=== PATIENT | male | born 1970 | race Caucasian/White ===

== ENCOUNTER 2017-12-22 19:22 | Observation (INO) ==
--- NOTE | 2017-12-22 19:56 | Emergency Department Note ---
Disposition Clinical Impression: Lumbar radiculopathy Disposition: Admitted As Inpatient Condition: Good Referrals: NONE,PCP [Primary Care Provider] - Forms: ED Satisfaction Letter Time of Disposition: 22:39 Back Pain HPI - General Chief Complaint: ED Back Pain/Injury Stated Complaint: lumbar compression Time Seen by Provider: 12/22/17 19:43 Source: patient, EMS Mode of arrival: EMS Limitations: no limitations Nursing Notes Reviewed: Yes Vital Signs Reviewed: Yes - History of Present Illness HPI Narrative: 47-year-old male presents to the ER with a chief complaint of left leg pain, numbness. Patient states he started having pain roughly 6 months ago. Denies any trauma. States that he has been seeing his primary care provider getting anti-inflammatories. No imaging performed. States that it has been debilitating for the last 6 months however this morning whenever he bent over to try to put on his sock that the symptoms intensified. No prior history of surgeries on his back. No fevers, diabetes, history of IV drug use, anticoagulation. He reports numbness that goes down his left leg. He was seen in an outside facility where he had imaging of his hip as well as his lumbar spine with MRI. MRI report at that time demonstrated retropulsion of L5-S1 and the patient was transferred here for further evaluation. It appears that orthopedics was consulted by the staff there. Pt Subjective Complaint: other (LLE pain, numbness) Onset (ago): month(s) Duration: gradually worsening Similar Symptoms Previously: Yes Pain Severity: severe Radiation: left leg Improves with: none Worsens with: movement Context: bending - Related Data Home Medications Medication Instructions Recorded Confirmed No Known Home Drugs 12/22/17 12/22/17 Allergies Allergy/AdvReac Type Severity Reaction Status Date / Time No Known Allergies Allergy Verified 12/22/17 21:59 All systems ED: reviewed and negative except as stated. Constitutional: Denies: fever Genitourinary: Denies: urgency, dysuria Musculoskeletal: Denies: back pain Neurological: Reports: numbness, paresthesias. Denies: weakness Past Medical History - Past Medical History Attestation: Yes The following information was validated with the patient. Source: patient Medical history: Reports: no medical history Psychiatric history: Reports: no psych history - Social History Smoking Status: Current every day smoker Alcohol use: Reports: occasionally Drug use: Reports: none Physical Exam - General Limitations: no limitations General appearance: alert, in no apparent distress - Head Head exam: atraumatic, normocephalic - Eye Eye exam: Present: normal appearance - ENT ENT exam: normal exam - Neck Neck exam: Present: normal inspection - Chest Chest inspection: Present: normal inspection, symmetric chest wall rise - Respiratory Respiratory exam: Present: normal lung sounds bilaterally - Cardiovascular Cardiovascular exam: Present: regular rate, normal rhythm, normal heart sounds - Abdominal Exam Abdominal exam: Present: soft, Non-Tender. Absent: tenderness, distention, rigidity - Extremities Exam Extremities exam: Present: normal inspection, full ROM - Expanded Upper Extremity Exam Shoulder exam: Present: normal inspection, full ROM Arm exam: Present: normal inspection, full ROM Elbow exam: Present: normal inspection, full ROM Forearm/Wrist exam: Present: normal inspection, full ROM Hand exam: Present: normal inspection, full ROM Vascular exam: Normal: radial pulse - Expanded Lower Extremity Exam Hip/Pelvis exam: Present: normal inspection, full ROM Upper leg exam: Present: normal inspection, full ROM Knee exam: Present: normal inspection, full ROM Lower leg exam: Present: normal inspection, full ROM Ankle exam: Present: normal inspection, full ROM Foot/toe exam: Present: normal inspection, full ROM Neurovascular/Tendon exam: Present: sensory deficit. Absent: motor deficit - Back Exam Back exam: Present: normal inspection. Absent: tenderness, CVA tenderness (R), CVA tenderness (L), vertebral tenderness - Neurological Exam Neurological exam: Present: alert, other (GCS 15. The patient has numbness to the left leg as well as decreased range of motion secondary to pain.) - Skin Skin exam: Present: warm, dry Course Course Narrative: Patient seen and examined. Vital signs reviewed. Imaging reviewed from the prior facility. Evidence of L5-S1 disc extrusion with mass effect and compression of the descending S1 nerve root. Plan to get labs, bladder scan and discuss with spine. - Reevaluation(s) Reevaluation #1: Spine has been paged. Time: 21:00 - Consultations Consultation #1: I spoke with Dr. Freire who was continuous mining machine lode miner for spine. Discussed the patient's history exam as well as imaging at the outside facility. Discussed the patient' s bladder scan which showed 270 mL. The patient has preserved motor function with power of at least 4/5 somewhat limited due to pain. His symptoms are purely sensory at this time. Dr. Freire agrees with admission with consultation to pain management and that he will also discuss with Dr Beckett tomorrow. States there is no emergent indication for operative intervention if he is not having bowel or bladder issues or loss of motor function at this time. Time: 21:44 Vital Signs Temperature 98.5 F 12/22/17 19:43 Pulse Rate 128 12/22/17 19:43 Respiratory Rate 20 12/22/17 19:43 Blood Pressure 173/100 12/22/17 19:43 O2 Sat by Pulse Oximetry 96 12/22/17 19:43 Temperature 98.5 F 12/22/17 19:43 Pulse Rate 116 12/22/17 21:28 Respiratory Rate 18 12/22/17 21:28 Blood Pressure 137/109 12/22/17 21:28 O2 Sat by Pulse Oximetry 94 12/22/17 21:28 Oxygen Delivery Oxygen Delivery Room Air Back Pain/Injury - MDM Narrative Medical decision making narrative: 47-year-old male with lumbar radiculopathy to the left leg. MRI demonstrating significant compression of the S1 nerve root. He is neurologically intact with the exception of sensation deficit in the left leg. His bladder scan here did not demonstrate retention. Our spine surgeon was consulted per documentation from the outlying facility. This case was discussed with the on-call spine provider who is consulted and was also going to pass this case along to the spine surgeon tomorrow. They do not recommend for any emergent intervention as the patient has no bowel or bladder symptoms or motor deficit. Patient's pain was attempted to be treated in the emergency department with narcotics. The patient is admitted to the hospitalist service with consultation to pain management. - Medical Records Medical records reviewed: Yes I reviewed the patient's medical records. - Lab Data Lab results reviewed: Yes I reviewed the patient's lab results. Result diagrams: 12/22/17 19:53 12/22/17 19:53 Lab Results 12/22/17 12/22/17 12/22/17 Range/Units 19:53 19:53 19:53 WBC 15.9 H (4.3-11.1) K/mcL RBC 5.20 (4.19-5.50) M/mcL Hgb 16.7 (12.9-16.9) g/dL Hct 47.3 (37.5-50.1) % MCV 91.0 (83.0-100.0) fL MCH 32.1 (28.0-33.3) pg MCHC 35.3 (31.6-35.5) g/dL RDW 12.3 (11.5-14.5) % Plt Count 249 (140-400) K/mcL MPV 9.5 (9.4-12.4) fL Immature Gran % 3.1 (0-4) % Seg Neutrophils % 90.7 % Lymphocytes % 4.8 % Monocytes % 0.8 % Eosinophils % 0.0 % Basophils % 0.6 % Neutrophils # 14.4 H (1.6-8.9) K/mcL Lymphocytes # 0.8 (0.6-4.6) K/mcL Monocytes # 0.1 (0.0-1.3) K/mcL Eosinophils # 0.0 (0.0-0.6) K/mcL Basophils # 0.1 (0.0-0.2) K/mcL PT 11.8 (9.4-12.1) Seconds INR 1.0 Sodium 136 (136-145) mEq/L Potassium 4.4 (3.5-5.1) mEq/L Chloride 102 (98-107) mEq/L Carbon Dioxide 24 (23-29) mEq/L BUN 18 (6-20) mg/dL Creatinine 1.06 (0.70-1.30) mg/dL Est GFR ( Amer) > 60 (> 60) Est GFR (Non-Af Amer) > 60 (> 60) BUN/Creatinine Ratio 17 (6-26) Glucose 164 H (70-105) mg/dL Calculated Osmolality 288 (280-300) Calcium 10.7 H (8.6-10.3) mg/dL Urine Color (Yellow) Urine Clarity (Clear) Urine pH (5.0-8.0) pH Units Ur Specific [place] (1.010-1.025) Urine Protein (Neg-Trace) mg/dL Urine Glucose (UA) (Normal) mg/dL Urine Ketones (Negative) mg/dL Urine Blood (Negative) Urine Nitrite (Negative) Urine Bilirubin (Negative) Urine Urobilinogen (Normal) mg/dL Ur Leukocyte Esterase (Negative) Urine Microscopic WBC (0-3) per hpf Ur Squamous Epith Cells (None-Few) per lpf Urine Bacteria (None-Few) per hpf Hyaline Casts (None-Few) per lpf Urine Yeast Ur Culture Indicated? (NO) 12/22/17 Range/Units 20:10 WBC (4.3-11.1) K/mcL RBC (4.19-5.50) M/mcL Hgb (12.9-16.9) g/dL Hct (37.5-50.1) % MCV (83.0-100.0) fL MCH (28.0-33.3) pg MCHC (31.6-35.5) g/dL RDW (11.5-14.5) % Plt Count (140-400) K/mcL MPV (9.4-12.4) fL Immature Gran % (0-4) % Seg Neutrophils % % Lymphocytes % % Monocytes % % Eosinophils % % Basophils % % Neutrophils # (1.6-8.9) K/mcL Lymphocytes # (0.6-4.6) K/mcL Monocytes # (0.0-1.3) K/mcL Eosinophils # (0.0-0.6) K/mcL Basophils # (0.0-0.2) K/mcL PT (9.4-12.1) Seconds INR Sodium (136-145) mEq/L Potassium (3.5-5.1) mEq/L Chloride (98-107) mEq/L Carbon Dioxide (23-29) mEq/L BUN (6-20) mg/dL Creatinine (0.70-1.30) mg/dL Est GFR ( Amer) (> 60) Est GFR (Non-Af Amer) (> 60) BUN/Creatinine Ratio (6-26) Glucose (70-105) mg/dL Calculated Osmolality (280-300) Calcium (8.6-10.3) mg/dL Urine Color Dark Yellow (Yellow) Urine Clarity Clear (Clear) Urine pH 5.5 (5.0-8.0) pH Units Ur Specific [place] 1.026 H (1.010-1.025) Urine Protein Trace (Neg-Trace) mg/dL Urine Glucose (UA) Normal (Normal) mg/dL Urine Ketones Trace H (Negative) mg/dL Urine Blood Negative (Negative) Urine Nitrite Negative (Negative) Urine Bilirubin Small H (Negative) Urine Urobilinogen Normal (Normal) mg/dL Ur Leukocyte Esterase Negative (Negative) Urine Microscopic WBC 0-3 (0-3) per hpf Ur Squamous Epith Cells Moderate H (None-Few) per lpf Urine Bacteria None Seen (None-Few) per hpf Hyaline Casts None Seen (None-Few) per lpf Urine Yeast Test Not Performed Ur Culture Indicated? NO (NO) Heidy - Heidy Situation: Demographics, MOA Background: Presenting Complaint, Relevant PMH, Meds, & Allergies Assessment: Course and respsone to treatment, Exam Concerns, Patient/Family Expectation, Pertinant Lab Results Recommendation: Barrier(s) to disposition, Recommendation based on pending studies, treatments, or consults Heidy Report Given to: Dr. Jose Moody Repor Time: 22:37
[2017-12-22 20:06] LABS: Basophils # 0.1 K/mcL (0.0-0.2); Basophils % 0.6 %; Hematocrit 47.3 % (37.5-50.1); Hemoglobin 16.7 g/dL (12.9-16.9); Immature Granulocytes % 3.1 % (0-4); Lymphocytes # 0.8 K/mcL (0.6-4.6); Lymphocytes % 4.8 %; Mean Corpuscular HGB Conc 35.3 g/dL (31.6-35.5); Mean Corpuscular Hemoglobin 32.1 pg (28.0-33.3); Mean Platelet Volume 9.5 fL (9.4-12.4); Monocytes # 0.1 K/mcL (0.0-1.3); Monocytes % 0.8 %; Neutrophils # 14.4 K/mcL (1.6-8.9); Platelet Count 249 K/mcL (140-400); Red Cell Distribution Width 12.3 % (11.5-14.5); Segmented Neutrophils % 90.7 %
[2017-12-22 20:11] LABS: Prothrombin Time 11.8 Seconds (9.4-12.1)
[2017-12-22] MEDS ORDERED: *HR* FentaNYL (PF) 100 MCG/2 ML VIAL IVP ONE (20:16)
[2017-12-22 20:22] LABS: Bilirubin,Urine Small (Negative); Blood,Urine Negative (Negative); Clarity,Urine Clear (Clear); Color,Urine Dark Yellow (Yellow); Glucose,Urine (UA) Normal (Normal); Ketones,Urine Trace mg/dL (Negative); Leukocyte Esterase,Urine Negative (Negative); Nitrite,Urine Negative (Negative); PH,Urine 5.5 pH Units (5.0-8.0); Protein,Urine Trace mg/dL (Neg-Trace); Specific Gravity,Urine 1.026 (1.010-1.025); Urobilinogen,Urine Normal (Normal)
[2017-12-22 20:24] LABS: Bacteria,Urine None Seen per hpf (None-Few); Hyaline Casts,Urine None Seen per lpf (None-Few); Squamous Epithelial Cell,Urine Moderate per lpf (None-Few); WBC,Urine 0-3 per hpf (0-3)
[2017-12-22 20:25] LABS: BUN/Creatinine Ratio 17 (6-26); Blood Urea Nitrogen 18 mg/dL (6-20); Calcium 10.7 mg/dL (8.6-10.3); Carbon Dioxide 24 mEq/L (23-29); Chloride 102 mEq/L (98-107); Glucose 164 mg/dL (70-105); Osmolality,Calculated 288 (280-300); Potassium 4.4 mEq/L (3.5-5.1); Sodium 136 mEq/L (136-145); eGFR For Non-African Americans > 60 (> 60)
--- NOTE | 2017-12-22 21:09 | Emergency Department Note ---
Disposition Clinical Impression: Lumbar radiculopathy Disposition: Admitted As Inpatient Condition: Good Time of Disposition: 22:39 General Adult HPI - General Chief complaint: ED Back Pain/Injury Stated complaint: lumbar compression Time Seen by Provider: 12/22/17 19:43 Source: patient, EMS Mode of arrival: EMS Limitations: no limitations Nursing Notes Reviewed: Yes Vital Signs Reviewed: Yes - History of Present Illness Pain Scale: 10 - Related Data Home Medications Medication Instructions Recorded Confirmed No Known Home Drugs 12/22/17 12/22/17 Allergies Allergy/AdvReac Type Severity Reaction Status Date / Time No Known Allergies Allergy Verified 12/22/17 21:59 Constitutional: Denies: fever Genitourinary: Denies: urgency, dysuria Musculoskeletal: Denies: back pain Neurological: Reports: numbness, paresthesias. Denies: weakness Past Medical History - Past Medical History Medical history: Reports: no medical history Psychiatric history: Reports: no psych history - Social History Smoking Status: Current every day smoker Alcohol use: Reports: occasionally Drug use: Reports: none Physical Exam - General Limitations: no limitations General appearance: alert, in no apparent distress Course Vital Signs Temperature 98.5 F 12/22/17 19:43 Pulse Rate 128 12/22/17 19:43 Respiratory Rate 20 12/22/17 19:43 Blood Pressure 173/100 12/22/17 19:43 O2 Sat by Pulse Oximetry 96 12/22/17 19:43 Temperature 98.5 F 12/22/17 19:43 Pulse Rate 116 12/22/17 21:28 Respiratory Rate 18 12/22/17 21:28 Blood Pressure 137/109 12/22/17 21:28 O2 Sat by Pulse Oximetry 94 12/22/17 21:28 Oxygen Delivery Oxygen Delivery Room Air Medical Decision Making - Lab Data Lab results reviewed: Yes I reviewed the patient's lab results. Result diagrams: 12/22/17 19:53 12/22/17 19:53 Lab Results 12/22/17 12/22/17 12/22/17 Range/Units 19:53 19:53 19:53 WBC 15.9 H (4.3-11.1) K/mcL RBC 5.20 (4.19-5.50) M/mcL Hgb 16.7 (12.9-16.9) g/dL Hct 47.3 (37.5-50.1) % MCV 91.0 (83.0-100.0) fL MCH 32.1 (28.0-33.3) pg MCHC 35.3 (31.6-35.5) g/dL RDW 12.3 (11.5-14.5) % Plt Count 249 (140-400) K/mcL MPV 9.5 (9.4-12.4) fL Immature Gran % 3.1 (0-4) % Seg Neutrophils % 90.7 % Lymphocytes % 4.8 % Monocytes % 0.8 % Eosinophils % 0.0 % Basophils % 0.6 % Neutrophils # 14.4 H (1.6-8.9) K/mcL Lymphocytes # 0.8 (0.6-4.6) K/mcL Monocytes # 0.1 (0.0-1.3) K/mcL Eosinophils # 0.0 (0.0-0.6) K/mcL Basophils # 0.1 (0.0-0.2) K/mcL PT 11.8 (9.4-12.1) Seconds INR 1.0 Sodium 136 (136-145) mEq/L Potassium 4.4 (3.5-5.1) mEq/L Chloride 102 (98-107) mEq/L Carbon Dioxide 24 (23-29) mEq/L BUN 18 (6-20) mg/dL Creatinine 1.06 (0.70-1.30) mg/dL Est GFR ( Amer) > 60 (> 60) Est GFR (Non-Af Amer) > 60 (> 60) BUN/Creatinine Ratio 17 (6-26) Glucose 164 H (70-105) mg/dL Calculated Osmolality 288 (280-300) Calcium 10.7 H (8.6-10.3) mg/dL Urine Color (Yellow) Urine Clarity (Clear) Urine pH (5.0-8.0) pH Units Ur Specific [place] (1.010-1.025) Urine Protein (Neg-Trace) mg/dL Urine Glucose (UA) (Normal) mg/dL Urine Ketones (Negative) mg/dL Urine Blood (Negative) Urine Nitrite (Negative) Urine Bilirubin (Negative) Urine Urobilinogen (Normal) mg/dL Ur Leukocyte Esterase (Negative) Urine Microscopic WBC (0-3) per hpf Ur Squamous Epith Cells (None-Few) per lpf Urine Bacteria (None-Few) per hpf Hyaline Casts (None-Few) per lpf Urine Yeast Ur Culture Indicated? (NO) 12/22/17 Range/Units 20:10 WBC (4.3-11.1) K/mcL RBC (4.19-5.50) M/mcL Hgb (12.9-16.9) g/dL Hct (37.5-50.1) % MCV (83.0-100.0) fL MCH (28.0-33.3) pg MCHC (31.6-35.5) g/dL RDW (11.5-14.5) % Plt Count (140-400) K/mcL MPV (9.4-12.4) fL Immature Gran % (0-4) % Seg Neutrophils % % Lymphocytes % % Monocytes % % Eosinophils % % Basophils % % Neutrophils # (1.6-8.9) K/mcL Lymphocytes # (0.6-4.6) K/mcL Monocytes # (0.0-1.3) K/mcL Eosinophils # (0.0-0.6) K/mcL Basophils # (0.0-0.2) K/mcL PT (9.4-12.1) Seconds INR Sodium (136-145) mEq/L Potassium (3.5-5.1) mEq/L Chloride (98-107) mEq/L Carbon Dioxide (23-29) mEq/L BUN (6-20) mg/dL Creatinine (0.70-1.30) mg/dL Est GFR ( Amer) (> 60) Est GFR (Non-Af Amer) (> 60) BUN/Creatinine Ratio (6-26) Glucose (70-105) mg/dL Calculated Osmolality (280-300) Calcium (8.6-10.3) mg/dL Urine Color Dark Yellow (Yellow) Urine Clarity Clear (Clear) Urine pH 5.5 (5.0-8.0) pH Units Ur Specific [place] 1.026 H (1.010-1.025) Urine Protein Trace (Neg-Trace) mg/dL Urine Glucose (UA) Normal (Normal) mg/dL Urine Ketones Trace H (Negative) mg/dL Urine Blood Negative (Negative) Urine Nitrite Negative (Negative) Urine Bilirubin Small H (Negative) Urine Urobilinogen Normal (Normal) mg/dL Ur Leukocyte Esterase Negative (Negative) Urine Microscopic WBC 0-3 (0-3) per hpf Ur Squamous Epith Cells Moderate H (None-Few) per lpf Urine Bacteria None Seen (None-Few) per hpf Hyaline Casts None Seen (None-Few) per lpf Urine Yeast Test Not Performed Ur Culture Indicated? NO (NO) - Radiology Data Radiology results reviewed: Yes I reviewed the patient's radiology results. Attestation Statement - Attestation Attestation: I, Mitchell Waggoner MD, personally evaluated this patient and discussed their management with the resident physician. I reviewed the resident's note and agree with the documented findings, medical decision making, and plan of care. 47-year-old male who is transferred here from another hospital for back pain. Patient had a complete workup at the other facility including an MRI of the spine. Patient was accepted for transfer here by the spine surgeon Dr. Beckett , but was accepted only to come to the emergency department. I am unclear why as the patient has already had a complete workup including MRI. He states he has had left lower back pain radiating down the left leg with intermittent numbness and tingling in the left leg for the past 6 months. Symptoms became acutely worse this morning when he bent over to put on his socks. He states today the pain is been intolerable. He states he has not urinated all day but denies any urge to urinate. No dribbling or incontinence. No fever or abdominal pain. On examination patient is a well-developed well-nourished male in moderate discomfort. He is standing holding on the side of the stretcher as he is unable to sit. There is no cyanosis or diaphoresis. Breath sounds are clear and equal bilaterally. Heart regular rate and rhythm. Abdomen soft and nontender with normal bowel sounds. Decreased sensation over the posterior and lateral aspect of the left leg as well as the posterior calf. MRI from the outside facility showed an L5-S1 large left lateral recess disc extrusion with caudal disc migration measures causing severe left lateral recess stenosis with mass effect/compression of the left descending S1 nerve root. The disc extrusion measures 8 mm AP and 8 mm of caudal migration. Consultation with orthopedic documentation specialist as recommended. Labs reviewed. Dr. Darden consulted orthopedic spine electronic device monitor, Dr. Freire, and he recommended admission by the hospitalist for spine surgery consultation in the hospital in the morning. The hospitalist, Dr. Peterson, was consulted and accepted admission of the patient.
[2017-12-22] MEDS ORDERED: Naloxone 0.4 MG/ML INJ IVP PRN (22:48)
[2017-12-22] MEDS ORDERED: traMADol 50 MG TABLET PO PRN (22:59)
[2017-12-22] MEDS ORDERED: *HR* Labetalol 20 MG/4 ML SYRINGE IVP ONE (23:44)
[2017-12-23] MEDS: 0.9 % Sodium Chloride 1,000 ML IVC SCH ×2 (00:10→14:02)
[2017-12-23] MEDS: *HR* Morphine 2 MG/ML SYRINGE IVP PRN ×2 (00:11→05:05)
--- NOTE | 2017-12-23 00:17 | Internal Med History&Physical ---
Date of Encounter: 12/23/17 Time of Encounter: 23:30 Internal Medicine - H&P: HPI Chief complaint: Severe back pain today History of present illness: Mr. Joiner is a 47 year old male with pmh of severe back pain for the past 6 months presenting with worsening of his back pain today. Patient notes he has been having constant back apin in the lower back with associated intermittent numbness of his legs for the past 6 months and has been seeing his PCP and getting cortisone injections. Last injection was about 3 weekas ago. His back pain has usually been relieved for about a month after these injections are given. He comes in today complaining of severe back pain that left him unable to move or tie his shoelaces, and has been constant all day. He was at [facility], where he got an MRI of the back done showing an L5-s1 disc extrusion and Dr Kimbrough was consulted who accepted the patient here for further management. He denies any fevers or chills, denies IV drug abuse Past Med Surg Social Fam HX - Past Medical History Medical history: no medical history Psychiatric history: no psych history - Past Surgical History Surgical History: no surgical history - Social History Smoking Status: Current every day smoker Packs per day: 1.5 Alcohol use: occasionally Drug use: none, marijuana - Family History Paternal Grandfather Living Status: Cause of : Suicide Hx Family Cancer: Yes (Lung, Brain with mets) Paternal Grandmother Cause of : Cancer Hx Family Cancer: Yes (Lung, Brain with mets) Internal Medicine - H&P: Meds No Known Home Drugs 12/22/17 [History] 3 Allergy/AdvReac Type Severity Reaction Status Date / Time No Known Allergies Allergy Verified 12/22/17 21:59 All Systems PM: A 10-system review of systems was performed and is negative for pertinent findings except as documented above in the HPI. - Constitutional Constitutional: no chills, no fever(s), no night sweats - EENT Eyes: no change in vision, no discharge, no pain, no photophobia Ears: no ear discharge, no ear pain, no tinnitus Nose, mouth and throat: no dysphagia, no nasal discharge, no neck pain, no sore throat - Cardiovascular Cardiovascular ROS IM: no chest pain, no diaphoresis, no dyspnea, no lightheadedness, no palpitations, no syncope - Respiratory Respiratory: no cough, no dyspnea, no wheezing, no excessive phlegm production - Gastrointestinal Gastrointestinal: no abdominal pain, no diarrhea, no hematemesis, no hematochezia, no melena, no nausea, no vomiting - Musculoskeletal Musculoskeletal ROS IM: back pain, no numbness, no tingling - Integumentary Integumentary IM: no rash, no unusual bruising - Neurological Neurological ROS: no confusion, no convulsions, no focal weakness, no numbness, no tingling, no tremor(s) - Hematologic/Lymphatic Hematologic/Lymphatic: no easy bruising - Constitutional Vitals: Temp Pulse Resp BP Pulse Ox 97.9 F 95 18 146/86 97 12/22/17 23:35 12/22/17 23:35 12/22/17 23:35 12/23/17 00:06 12/22/17 23:35 Exam: Severe pain - Head Head exam: Present: atraumatic, normocephalic - Eye Eye exam: Present: PERRL, conjuntiva pink, sclera anicteric Pupils: Present: PERRL - Neck Neck exam general surgery: Present: supple, trachea midline. Absent: lymphadenopathy - Respiratory Respiratory exam: Present: CTAB. Absent: accessory muscle use, rales, rhonchi, wheezes - Cardiovascular Cardiovascular exam: Present: RRR, +S1, +S2. Absent: diastolic murmur, gallop, rubs, systolic murmur - GI/Abdominal GI/Abdominal exam: Present: normal bowel sounds, soft, no peritoneal signs. Absent: distended, tenderness - Extremities Exam Extremities exam: Present: warm, radial pulses palpable and symmetrical. Absent : calf tenderness, cyanotic, pedal edema - Back Exam Back exam: Present: vertebral tenderness - Neurological Exam Neurological exam: Present: CN II-XII intact, oriented X3, no focal deficits. Absent: pronater drift, facial droop, speech deficit - Skin Skin exam: Present: dry, intact Internal Med - H&P Results - Labs CBC & Chem 7: 12/22/17 19:53 12/22/17 19:53 - Assessment and plan (1) Lumbosacral disc herniation Current Visit: Yes Status: Acute Assessment and plan: Patient has severe back pain with L5-s1 disc extrusion seen on MRI. He will be started on round the clock pain control. Spine to see in am. Pain specialist reproduction production manager covering spine was consulted who says spine surgeon will see in am. Dr. kimbrough (spine) accepted this patient from [facility] (2) Lumbar radiculopathy Current Visit: Yes Status: Acute Assessment and plan: see #1 (3) Hypertension Current Visit: Yes Status: Acute Assessment and plan: No history of hypertension. Possibly aggravated by pain. Labetalol PRN Qualifiers: Hypertension type: essential hypertension Qualified Code(s): I10 - Essential (primary) hypertension (4) Leukocytosis Current Visit: Yes Status: Acute Assessment and plan: Possibly 2/2 to records technician steroid injections. PAtient has no active signs of infection. monitor WBC. Obtain chest xray Qualifiers: Qualified Code(s): D72.829 - Elevated white blood cell count, unspecified (5) DVT prophylaxis Current Visit: Yes Status: Acute Assessment and plan: Heparin sc - Time Spent With Patient Total time spent is greater than 50% in coordination of care (as documented) at patient's floor/unit and/or counseling patient:
[2017-12-23 01:16] LABS: Basophils % 0.3 %; Hematocrit 45.5 % (37.5-50.1); Hemoglobin 16.6 g/dL (12.9-16.9); Immature Granulocytes % 1.9 % (0-4); Lymphocytes # 0.9 K/mcL (0.6-4.6); Lymphocytes % 7.6 %; Mean Corpuscular HGB Conc 36.5 g/dL (31.6-35.5); Mean Corpuscular Hemoglobin 32.8 pg (28.0-33.3); Mean Corpuscular Volume 89.9 fL (83.0-100.0); Mean Platelet Volume 9.6 fL (9.4-12.4); Monocytes # 0.4 K/mcL (0.0-1.3); Monocytes % 3.1 %; Neutrophils # 10.1 K/mcL (1.6-8.9); Platelet Count 233 K/mcL (140-400); Red Blood Count 5.06 M/mcL (4.19-5.50); Red Cell Distribution Width 12.2 % (11.5-14.5); Segmented Neutrophils % 87.1 %
[2017-12-23 01:36] LABS: BUN/Creatinine Ratio 17 (6-26); Blood Urea Nitrogen 15 mg/dL (6-20); Calcium 10.5 mg/dL (8.6-10.3); Carbon Dioxide 21 mEq/L (23-29); Chloride 107 mEq/L (98-107); Glucose 144 mg/dL (70-105); Magnesium 2.1 mg/dL (1.6-2.6); Osmolality,Calculated 287 (280-300); Phosphorous 3.2 mg/dL (2.7-4.5); Potassium 4.1 mEq/L (3.5-5.1); Sodium 137 mEq/L (136-145); eGFR For Non-African Americans > 60 (> 60)
--- NOTE | 2017-12-23 08:46 | Orthopedic Consult Note ---
Date of Encounter: 12/23/17 Time of Encounter: 08:46 Assessment and Plan (1) Lumbar radiculopathy Current Visit: Yes Status: Acute (2) Lumbosacral disc herniation Current Visit: Yes Status: Acute History of Present Illness Chief complaint: left leg pain HPI: Mr. Joiner is a 47 year old male presenting to [facility] for pain management after bending over to tie his shoes leading to severe left lower extremity pain radiating down the leg. He states he has had pain in the left leg for appx 6 mos now, but when he bent over the pain became unbearable leading him to seek care at [facility]. He states he has been seen at [facility] urgent care in [facility] receiving IM injection of steroid monthly for the past 6 mos with short term relief of symptoms. 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 He denies any loss of bowel or bladder function however states he has been "impotent" for the past 6 mos since original onset of pain. He denies any trauma 6 mos ago and denies any recall of a specific event that lead to onset of pain. He states that he has not had any injections in to the back such as epidural steroid injections and denies any history of spinal or neurosurgery. On exam he is lying supine in bed. Patient's girlfriend per patient on couch in room. He of his own accord moved from laying on his right side to laying on his back when this provider entered the room. No spinal deformity noted and no tenderness to palpation of back. He does admit pain to palpation of left buttock and proximal posterior thigh however denies pain to palpation to the right anterior thigh. Positive straight leg raise to the Left. Patient cooperates for ankle and calf testing. No calf tenderness to palpation bilaterally. Weakness noted to left plantar flexion 4/5 otherwise with limited patient cooperation exam appears to be within normal limits. Altered sensation to palpation noted the full distribution of S1 nerve root. Neurovascularly intact to b/l lower extremities with no calf tenderness to palpation. He declines to participate with accurate hip and knee ROM or strength testing stating that "you better have pain medication in your hand to give me if you expect me to move". In addition he states "I've already told this over and over 30 times and you must not talk to anyone else or review other records". I informed patient that it is true we do not have ready availability to other records electronically however I have reviewed the information available to me at this time and wish to confirm and perform further detailed testing related to his spine to evaluate his symptoms to develop an appropriate treatment strategy. Patient agreeable to participate as stated above, otherwise not secondary to patient pain. MRI reviewed with Dr. Beckett demonstrating large left paracentral disc extrusion displacing left S1 nerve root and causing severe lateral recess stenosis. Dr. Beckett also saw and examined patient. Plan for microdiscectomy, left L5-S1 on 12/24/17. Dr. Beckett obtaining informed consent. NPO at midnight tonight. Pain control per hospitalist discretion. Past Med Surg Social Fam HX - Past Medical History Medical history: no medical history Psychiatric history: no psych history - Past Surgical History Surgical History: no surgical history - Social History Smoking Status: Current every day smoker Packs per day: 1.5 Alcohol use: occasionally Drug use: none, marijuana - Family History Paternal Grandfather Living Status: Cause of : Suicide Hx Family Cancer: Yes (Lung, Brain with mets) Paternal Grandmother Cause of : Cancer Hx Family Cancer: Yes (Lung, Brain with mets) Medications and Allergies No Known Home Drugs 12/22/17 [History] 3 Allergy/AdvReac Type Severity Reaction Status Date / Time No Known Allergies Allergy Verified 12/22/17 21:59 All Systems Reviewed: The remainder of the systems were reviewed and are negative Physical Exam - Constitutional Vitals: Temp Pulse Resp BP Pulse Ox 97.8 F 85 18 150/91 97 12/23/17 06:55 12/23/17 06:55 12/23/17 06:55 12/23/17 06:55 12/23/17 06:55 Results - Labs Result Diagrams: 12/23/17 00:57 12/23/17 00:57 Labs: Abnormal lab results WBC 11.6 K/mcL (4.3-11.1) H 12/23/17 00:57 MCHC 36.5 g/dL (31.6-35.5) H 12/23/17 00:57 Neutrophils # 10.1 K/mcL (1.6-8.9) H 12/23/17 00:57 Carbon Dioxide 21 mEq/L (23-29) L 12/23/17 00:57 Glucose 144 mg/dL (70-105) H 12/23/17 00:57 Calcium 10.5 mg/dL (8.6-10.3) H 12/23/17 00:57 Ur Specific [place] 1.026 (1.010-1.025) H 12/22/17 20:10 Urine Ketones Trace mg/dL (Negative) H 12/22/17 20:10 Urine Bilirubin Small (Negative) H 12/22/17 20:10 Ur Squamous Epith Cells Moderate per lpf (None-Few) H 12/22/17 20:10 H & H 12/23/17 Range/Units 00:57 Hgb 16.6 (12.9-16.9) g/dL Hct 45.5 (37.5-50.1) % All other labs normal. Consult Discharge Plan - Plan Referrals: NONE,PCP [Primary Care Provider] -
[2017-12-23] MEDS ORDERED: Dexamethasone 4 MG/ML VIAL IVP ONE ×2 (09:08→09:45)
[2017-12-23] MEDS ORDERED: *HR* HYDROmorphone 4 MG TABLET PO ONE (09:10)
[2017-12-23] MEDS ORDERED: OXYCODONE Oral CONC 10 MG/0.5 ML ORAL.SYG SL PRN (09:11)
[2017-12-23] MEDS: *HR* Heparin 5,000 UNIT/ML VIAL SQ SCH ×2 (09:38→18:33)
[2017-12-23] MEDS ORDERED: Dexamethasone 10 MG/ML VIAL IVP ONE (10:00)
--- NOTE | 2017-12-23 14:28 | Internal Med Progress Note ---
Hospitalist Progress Note - Encounter Date of Encounter: 12/23/17 Time of Encounter: 11:00 - Subjective Interval History: Mr. Joiner is a 47 year old male with pmh of severe back pain for the past 6 months presenting with worsening of his back pain for the past 6 months. Patient notes he has been having constant back apin in the lower back with associated intermittent numbness of his legs for the past 6 months and has been seeing his PCP and getting cortisone injections. Last injection was about 3 weekas ago. His back pain has usually been relieved for about a month after these injections are given.He was at [facility], where he got an MRI of the back done showing an L5-s1 disc extrusion and Dr Beckett was consulted who accepted the patient here for further management. He denies any fevers or chills , denies IV drug abuse in the ED he was started on pain medication. spine surgery was consulted and recommended him for surgeryon 12/24/17 currently he is complaining of extreme pain in the lower back, denies saddle anesthesia, no bowel or bladder incontinence, denies loss of strength in his lower extremities, no paresthesia or loss of sensation of his lowerr extremities. he denies N/V/D, was able to eat his food. His pain is somewhat controlled and he is asking for better pain management. he denies CP, palpitations, SOB. - Exam Vitals: Temp Pulse Resp BP Pulse Ox 98 F 59 18 175/94 99 12/23/17 11:13 12/23/17 11:13 12/23/17 11:13 12/23/17 11:13 12/23/17 11:13 Exam: General: Patient is alert, oriented, mild distress secondary to pain Head: atraumatic, normocephalic, Eye: normal appearance, PERRL, no scleral icterus, no conjunctival injection ENT: mucous membranes moist, normal external ear exam Neck: normal inspection, trachea midline, full ROM, no carotid bruits Chest: normal inspection, symmetric chest rise Respiratory: Good respiratory effort. Bilateral breath sounds are clear without wheezing, crackles, or rhonchi. Cardiovascular: Regular rate and rhythm. s1 and s2 No clicks, rubs, gallops, or murmors. Abdomen: Bowel sounds present normoactive x-4 quadrants. Abdomen is soft, nondistended. no Epigastric tenderness. No guarding or rebound. No organomegaly noted, musculoskeletal: Spontaneously moving all extremities. no edema, no calf tenderness Skin: warm, dry, intact. Neuro: Alert and oriented x4. Sensation light touch intact in all extremities, Cranial nerves 2-12 is intact. is refusing to supervisor opening and picking legs from the bed secondary to back pain. is able to wiggle his toes. Psych: Patient's affect is normal - Assessment and Plan (1) Lumbosacral disc herniation Current Visit: Yes Status: Acute Assessment and Plan: L5-s1 disc extrusion seen on MRI will continue pain control with dilaudid PO spine surgery on board for OR in the AM will get EKG CXR reviewed and clear needs incentive spirometry pre and post surgery received IV steroids - no need to continue as per spine surgery team. NPO at midnight will start IVF as he will be NPO will follow AM labs (2) Lumbar radiculopathy Current Visit: Yes Status: Acute Assessment and Plan: Management as above (3) Leukocytosis Current Visit: Yes Status: Acute (4) Hypertension Current Visit: Yes Status: Acute Assessment and Plan: No history of hypertension although he has been hypertensive in the 150s to 170s Questionable secondary to pain, however pulse rate is within normal limits We will start him on amlodipine 10 mg by mouth will continue to monitor his vitals EKG ordered (5) Smoker Current Visit: Yes Status: Acute Assessment and Plan: was counseled on smoking cessation (6) DVT prophylaxis Current Visit: Yes Status: Acute Assessment and Plan: heparin sc DVT Prophylaxis: heparin sc - Time Spent with Patient Total time spent is greater than 50% in coordination of care (as documented) at patient's floor/unit and/or counseling patient: Plan of Care Discussed with: patient Internal Medicine: Result - Labs CBC & Chem 7: 12/23/17 00:57 12/23/17 00:57 Labs: Short CBC 12/23/17 Range/Units 00:57 WBC 11.6 H (4.3-11.1) K/mcL Hgb 16.6 (12.9-16.9) g/dL Hct 45.5 (37.5-50.1) % Plt Count 233 (140-400) K/mcL Neutrophils # 10.1 H (1.6-8.9) K/mcL BMP 12/23/17 00:57 Sodium 137 Potassium 4.1 Chloride 107 Carbon Dioxide 21 L BUN 15 Creatinine 0.87 Glucose 144 H Calcium 10.5 H - ABG Interpretation ABG results: PT/INR, D-dimer PT 11.8 Seconds (9.4-12.1) 12/22/17 19:53 - Impressions Impressions Chest X-Ray 12/23/17 00:27 IMPRESSION: No acute process. D/ / Jovi Hopper MD / Jovi Hopper MD Interpreting Provider: Jovi Hopper MD Consult Discharge Plan - Plan Referrals: NONE,PCP [Primary Care Provider] - (3) Leukocytosis Qualifiers: Qualified Code(s): D72.829 - Elevated white blood cell count, unspecified (4) Hypertension Qualifiers: Hypertension type: essential hypertension Qualified Code(s): I10 - Essential (primary) hypertension
[2017-12-23] MEDS: *HR* HYDROmorphone 2 MG TABLET PO PRN ×2 (14:36→20:50)
[2017-12-23] MEDS: amLODIPine 5 MG TABLET PO SCH (15:17)
[2017-12-23] MEDS: Acetaminophen 325 MG TABLET PO PRN (18:35)
[2017-12-24 00:54] LABS: Basophils % 0.2 %; Hematocrit 46.1 % (37.5-50.1); Hemoglobin 16.5 g/dL (12.9-16.9); Immature Granulocytes % 0.9 % (0-4); Lymphocytes # 1.3 K/mcL (0.6-4.6); Lymphocytes % 11.2 %; Mean Corpuscular HGB Conc 35.8 g/dL (31.6-35.5); Mean Corpuscular Hemoglobin 32.5 pg (28.0-33.3); Mean Corpuscular Volume 90.9 fL (83.0-100.0); Mean Platelet Volume 9.5 fL (9.4-12.4); Monocytes # 0.7 K/mcL (0.0-1.3); Monocytes % 6.1 %; Neutrophils # 9.2 K/mcL (1.6-8.9); Platelet Count 222 K/mcL (140-400); Red Blood Count 5.07 M/mcL (4.19-5.50); Red Cell Distribution Width 12.1 % (11.5-14.5); Segmented Neutrophils % 81.6 %
[2017-12-24 01:08] LABS: BUN/Creatinine Ratio 16 (6-26); Blood Urea Nitrogen 14 mg/dL (6-20); Calcium 10.1 mg/dL (8.6-10.3); Carbon Dioxide 26 mEq/L (23-29); Chloride 103 mEq/L (98-107); Glucose 158 mg/dL (70-105); Osmolality,Calculated 288 (280-300); Potassium 3.8 mEq/L (3.5-5.1); Sodium 137 mEq/L (136-145); eGFR For Non-African Americans > 60 (> 60)
--- NOTE | 2017-12-24 02:13 | Electrocardiograph Report ---
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
[2017-12-24] MEDS: *HR* HYDROmorphone 2 MG TABLET PO PRN ×2 (03:56→09:57)
[2017-12-24] MEDS: Acetaminophen 325 MG TABLET PO PRN ×2 (04:11→10:13)
[2017-12-24] MEDS: *HR* Heparin 5,000 UNIT/ML VIAL SQ SCH (05:19)
[2017-12-24] MEDS ORDERED: Bacitracin 50,000 UNIT, Polymyxin B Sulfate 500,000 UNIT, Sodium Chloride IRRigation 1,... IR ONE (06:00)
[2017-12-24] MEDS: amLODIPine 5 MG TABLET PO SCH (09:20)
[2017-12-24] MEDS ORDERED: Albuterol 2.5 MG/3 ML NEBULIZER IH ONE (11:06)
--- NOTE | 2017-12-24 11:12 | Anesthesia Evaluation PreOp ---
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 (lumbar radiculopathy secondary to disc protrusion, admitted with severe pain) Other Medical History: Denies Any Significant HX Anesthesia History: No Prior Anesthetic Complications Alcohol Use: occasionally Drug use: none, marijuana Medications and Allergies No Known Home Drugs 12/22/17 [History] 3 Allergy/AdvReac Type Severity Reaction Status Date / Time No Known Allergies Allergy Verified 12/22/17 21:59 - Meds/Allergy Pre-op Review Medications Reviewed: Yes Allergies Reviewed: Yes Beta Blockers on Current Med List: No Anesthesia Results - Labs 12/24/17 00:27 12/24/17 00:27 - Imaging EKG: report reviewed (sinus rhythm) Anesthesia Exam Selected Entries 12/24/17 10:53 Temperature 98.2 F Pulse Rate 80 Respiratory Rate 18 Blood Pressure 143/95 O2 Sat by Pulse Oximetry 97 Weight: 67 kg, BMI 22 NPO (# of Hours): over 8 hours - HEENT Pupil (Motor): Pupils equal Teeth: Normal Oral Opening: Greater than 3 - Cardiac Rhythm: Regular Murmur: None - Pulmonary Breath Sounds: bilateral Clear Respiratory Effort: Symmetrical Anesthesia Assess/Plan ASA Score: 2 Modified Anjelica Scale for Level of Consciousness: Cooperative, oriented, and tranquil Anesthetic Plan: General Monitoring Plan: Standard Monitors Recovery Plan: PACU (Discussed GA, risks. Agreed to proceed.)
[2017-12-24] MEDS ORDERED: Acetaminophen IV 1,000 MG/100 ML INFUS..BTL IVPB ONE (11:14)
[2017-12-24] MEDS ORDERED: *HR* FentaNYL (PF) 100 MCG/2 ML VIAL ONE (12:40)
[2017-12-24] MEDS ORDERED: Dexamethasone 4 MG/ML VIAL ONE (12:40)
[2017-12-24] MEDS ORDERED: *HR* Propofol 200 MG/20 ML VIAL IVP ONE (12:40)
[2017-12-24] MEDS ORDERED: *HR* Midazolam HCl 2 MG/2 ML VIAL ONE (12:40)
[2017-12-24] MEDS ORDERED: Ondansetron 4 MG/2 ML VIAL ONE (12:40)
[2017-12-24] MEDS ORDERED: Lidocaine -MPF 2% 2 ML VIAL ONE (12:40)
--- NOTE | 2017-12-24 13:41 | Spine Progress Note ---
Date of Encounter: 12/24/17 Time of Encounter: 13:39 Subjective Principal diagnosis: Lumbar disc herniation, lumbar radiculopathy, focal motor deficit Interval history: 47-year-old with long-standing history of severe left lower extremity radicular symptoms. Has developed worsening weakness in the lower extremity as well as intractable pain. MRI was reviewed and revealed a large disc extrusion at L5- S1 displacing the traversing S1 nerve root. He had weakness on examination as well as positive tension signs. His concerning weakness puts him at risk for further or permanent neurologic injury. Risks benefits possible complications and alternatives of microdiscectomy L5-S1 were fully discussed and the patient would like to proceed. Objective Vital signs: Vital Signs Temp Pulse Resp BP Pulse Ox 12/24/17 11:33 20 98 12/24/17 10:53 98.2 F 80 18 143/95 97 12/24/17 06:30 98.1 F 71 18 134/87 97 12/24/17 00:08 98.3 F 86 14 149/80 97 12/23/17 19:18 98.3 F 92 14 136/83 97 12/23/17 14:58 97.9 F 76 18 158/92 96 Intake and Output 12/23/17 12/24/17 12/24/17 23:59 07:59 15:59 Other: # Voids 1 - Labs CBC & BMP: 12/24/17 00:27 12/24/17 00:27 Labs: Abnormal lab results WBC 11.2 K/mcL (4.3-11.1) H 12/24/17 00:27 MCHC 35.8 g/dL (31.6-35.5) H 12/24/17 00:27 Neutrophils # 9.2 K/mcL (1.6-8.9) H 12/24/17 00:27 Glucose 158 mg/dL (70-105) H 12/24/17 00:27 Ur Specific [place] 1.026 (1.010-1.025) H 12/22/17 20:10 Urine Ketones Trace mg/dL (Negative) H 12/22/17 20:10 Urine Bilirubin Small (Negative) H 12/22/17 20:10 Ur Squamous Epith Cells Moderate per lpf (None-Few) H 12/22/17 20:10 Consult Discharge Plan - Plan Referrals: NONE,PCP [Primary Care Provider] -
[2017-12-24] MEDS ORDERED: *HR* HYDROmorphone (PF) 1 MG/ML SYRINGE ONE (13:47)
[2017-12-24] MEDS ORDERED: *HR* PHENYLEPHRINE 1,000 MCG/10 ML SYRINGE IVP ONE (14:27)
[2017-12-24] MEDS ORDERED: MORPHINE SUL Oral CONC 10 MG/0.5 ML ORAL.SYG SL PRN (14:30)
[2017-12-24] MEDS ORDERED: *HR* OxyCODONE Immed Rel 5 MG TABLET PO PRN (14:30)
[2017-12-24] MEDS ORDERED: *HR* Labetalol 100 MG/20 ML MDV IVP PRN (14:30)
[2017-12-24] MEDS ORDERED: Ondansetron 4 MG/2 ML VIAL IVP ONE (14:30)
[2017-12-24] MEDS ORDERED: *HR* Promethazine 25 MG/ML VIAL IVP PRN (14:30)
[2017-12-24] MEDS ORDERED: *HR* Meperidine 25 MG/ML SYRINGE IVP PRN (14:30)
[2017-12-24] MEDS ORDERED: *HR* FentaNYL (PF) 100 MCG/2 ML VIAL IVP PRN (14:30)
[2017-12-24] MEDS ORDERED: *HR* Rocuronium Bromide 50 MG/5 ML VIAL ONE (15:05)
[2017-12-24] MEDS ORDERED: Lidocaine -MPF 4% 5 ML AMPUL ONE (15:05)
[2017-12-24] MEDS ORDERED: Neostigmine Methylsulfate 3 MG/3 ML SYRINGE ONE (15:06)
--- NOTE | 2017-12-24 15:20 | Orthopedic Operative Note ---
Date of procedure: 12/24/17 Pre-op diagnosis: Lumbar disc herniation, lumbar radiculopathy, focal motor deficit Post-op diagnosis: same Operation/Findings: Microdiscectomy L5-S1 left: The patient was brought to the operative theater and was successfully administered general endotracheal intubation. He was given an antibiotic prior to the start of the procedure. Compression boots and stockings were used for deep vein thrombosis prophylaxis. The patient was turned prone on a Jerry table. The back was prepped and draped in the usual sterile fashion. Incision was marked and centered over the involved L5-S1 interspace in the midline. We used Bovie cautery to enter the lumbar fashion down the involved left side at the L5-S1 level. We reflected the paraspinal musculature to the lateral extent of the left L5-S1 facet joint. We placed and secured at Nadia retractor outside the facet joint. We dislodge the ligamentum flavum on the involved left side from its origin on the undersurface of the L5 lamina. We then removed the ligamentum flavum which allowed us to visualize the thecal sac, epidural fat and traversing left S1 nerve root. We medialized the traversing nerve root with a dural retractor and identified the L5-S1 disc space. We made an annulotomy into the L5-S1 disc space and removed extruded disc material. This was sent for pathologic evaluation. We decompressed the lateral recess as well as performed distal foraminotomy to allow room for the nerve root. The nerve root had good excursion and could be moved medially and laterally a least 1cm. We then copiously irrigated the wound and closed the wound with layers including 1 Vicryl for fascia 2-0 Vicryl for the subcutaneous tissue and Dermabond was used for skin closure. Sterile dressings were placed over the wound, the patient was transferred supine in the hospital bed and extubated. All sponge instrument and needle counts correct at the end procedure. Anesthesia: GETA Surgeon: Vishal Beckett Jr Was there an nurse's assistant present: No Estimated blood loss (cc): 15 Specimen: L5-S1 disc material Condition: stable Disposition: PACU
--- NOTE | 2017-12-24 16:00 | Anesthesia Evaluation Post Op ---
Date of Encounter: 12/24/17 Time of Encounter: 16:00 - Vital Signs Vital Signs: Vital Signs/O2 Sat, Most Current Temp Pulse Resp BP Pulse Ox 97.3 F L 77 14 142/97 99 12/24/17 15:31 12/24/17 15:51 12/24/17 15:51 12/24/17 15:51 12/24/17 15:51 - Lungs Lungs: Clear Ascult./Percussion - Airway Airway: Non-obstructed - Cardiovascular Regular Rate - Mental Status Mental Status: Alert & Oriented, Answers Appropriately - Pain Pain Scale: 5 Pain Scale used: Numeric (1 - 10) - Nausea Vomiting Nausea Vomiting: Not Present - Hydration Hydration: Ice chips, Has not voided - Discharge PostOp Status: Transfer Patient to floor
[2017-12-24] MEDS ORDERED: Naloxone 0.4 MG/ML INJ IVP PRN (16:17)
[2017-12-24] MEDS ORDERED: Ondansetron 4 MG/2 ML VIAL IVP PRN (16:17)
[2017-12-24] MEDS ORDERED: Acetaminophen 325 MG TABLET PO PRN (16:17)
[2017-12-24] MEDS: Ringers Solution, Lactated 1,000 ML IVC SCH (16:47)
[2017-12-24] MEDS: *HR* HYDROcodone/Acet 5/325 mg TABLET PO PRN ×2 (17:13→23:42)
--- NOTE | 2017-12-24 17:24 | Internal Med Progress Note ---
Hospitalist Progress Note - Encounter Date of Encounter: 12/24/17 Time of Encounter: 07:45 - Subjective Interval History: Mr. Joiner is a 47 year old male with pmh of severe back pain for the past 6 months presenting with worsening of his back pain for the past 6 months. Patient notes he has been having constant back apin in the lower back with associated intermittent numbness of his legs for the past 6 months and has been seeing his PCP and getting cortisone injections. Last injection was about 3 weekas ago. His back pain has usually been relieved for about a month after these injections are given.He was at [facility], where he got an MRI of the back done showing an L5-s1 disc extrusion and Dr Beckett was consulted who accepted the patient here for further management. He denies any fevers or chills , denies IV drug abuse in the ED he was started on pain medication. spine surgery was consulted and recommended him for surgery on 12/24/17 he is scheduled for surgery today 12/25/17 currently he pain in the lower back is controlled, denies saddle anesthesia, no bowel or bladder incontinence, denies loss of strength in his lower extremities, no paresthesia or loss of sensation of his lower extremities. he denies N/V/D, currently NPO for surgery. he denies CP, palpitations, SOB. - Exam Vitals: Temp Pulse Resp BP Pulse Ox 97.7 F 70 18 149/90 99 12/24/17 16:23 12/24/17 16:23 12/24/17 16:23 12/24/17 16:23 12/24/17 16:23 Exam: General: Patient is alert, oriented, mild distress secondary to pain Head: atraumatic, normocephalic, Eye: normal appearance, PERRL, no scleral icterus, no conjunctival injection ENT: mucous membranes moist, normal external ear exam Neck: normal inspection, trachea midline, full ROM, no carotid bruits Chest: normal inspection, symmetric chest rise Respiratory: Good respiratory effort. Bilateral breath sounds are clear without wheezing, crackles, or rhonchi. Cardiovascular: Regular rate and rhythm. s1 and s2 No clicks, rubs, gallops, or murmors. Abdomen: Bowel sounds present normoactive x-4 quadrants. Abdomen is soft, nondistended. no Epigastric tenderness. No guarding or rebound. No organomegaly noted, musculoskeletal: Spontaneously moving all extremities. no edema, no calf tenderness Skin: warm, dry, intact. Neuro: Alert and oriented x4. Sensation light touch intact in all extremities, Cranial nerves 2-12 is intact. 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 is able to wiggle his toes. Psych: Patient's affect is normal - Assessment and Plan (1) Lumbosacral disc herniation Current Visit: Yes Status: Acute Assessment and Plan: L5-s1 disc extrusion seen on MRI will continue pain control with dilaudid PO spine surgery on board for OR this AM 12/25 EKG- NSR CXR reviewed and clear needs incentive spirometry pre and post surgery received IV steroids - no need to continue as per spine surgery team. start cardiac diet post surgery will follow AM labs SCDs for DVt prophylaxis as he is s/p spine surgery (2) Lumbar radiculopathy Current Visit: Yes Status: Acute Assessment and Plan: Management as above (3) Leukocytosis Current Visit: Yes Status: Acute Assessment and Plan: Possibly 2/2 to half-way steroid injections. PAtient has no active signs of infection. monitor WBC. Obtain chest xray (4) Hypertension Current Visit: Yes Status: Acute Assessment and Plan: No history of hypertension although he has been hypertensive in the 150s to 170s Questionable secondary to pain, however pulse rate is within normal limits on amlodipine 10 mg by mouth- BP controlled will continue to monitor his vitals EKG ordered (5) Smoker Current Visit: Yes Status: Acute Assessment and Plan: was counseled on smoking cessation (6) DVT prophylaxis Current Visit: Yes Status: Acute Assessment and Plan: scd - Time Spent with Patient Total time spent is greater than 50% in coordination of care (as documented) at patient's floor/unit and/or counseling patient: Internal Medicine: Result - Labs CBC & Chem 7: 12/24/17 00:27 12/24/17 00:27 Labs: Short CBC 12/24/17 Range/Units 00:27 WBC 11.2 H (4.3-11.1) K/mcL Hgb 16.5 (12.9-16.9) g/dL Hct 46.1 (37.5-50.1) % Plt Count 222 (140-400) K/mcL Neutrophils # 9.2 H (1.6-8.9) K/mcL BMP 12/24/17 00:27 Sodium 137 Potassium 3.8 Chloride 103 Carbon Dioxide 26 BUN 14 Creatinine 0.90 Glucose 158 H Calcium 10.1 - ABG Interpretation ABG results: PT/INR, D-dimer PT 11.8 Seconds (9.4-12.1) 12/22/17 19:53 - Impressions Impressions Fluoroscopy 12/24/17 00:00 IMPRESSION: Intraprocedural fluoroscopic spot images as above. See separate procedure report for more information. D/ / Harley Lobo MD / Harley Lobo MD Interpreting Provider: Harley Lobo MD Lumbar Spine X-Ray 12/24/17 00:00 IMPRESSION: Intraprocedural fluoroscopic spot images as above. See separate procedure report for more information. D/ / Harley Lobo MD / Harley Lobo MD Interpreting Provider: Harley Lobo MD - VTE Documentation of Mechanical Device: Venous foot pump, device Consult Discharge Plan - Plan Referrals: NONE,PCP [Primary Care Provider] - (3) Leukocytosis Qualifiers: Qualified Code(s): D72.829 - Elevated white blood cell count, unspecified (4) Hypertension Qualifiers: Hypertension type: essential hypertension Qualified Code(s): I10 - Essential (primary) hypertension
[2017-12-24] MEDS: *HR* OxyCODONE Immed Rel 5 MG TABLET PO PRN (21:29)
[2017-12-25] MEDS: *HR* OxyCODONE Immed Rel 5 MG TABLET PO PRN (02:24)
[2017-12-25] MEDS: *HR* HYDROcodone/Acet 5/325 mg TABLET PO PRN (06:23)
[2017-12-25 07:41] VITALS: BP 151/86
[2017-12-25] MEDS: Ringers Solution, Lactated 1,000 ML IVC SCH (07:42)
--- NOTE | 2017-12-25 08:38 | Discharge Summary ---
- NOTES TO OUTPATIENT PROVIDER Notes to Outpatient Provider: with spine surgery Dr. freeman in 2 weeks. follow up with BP Date of Encounter: 12/25/17 Time of Encounter: 08:36 - Discharge Diagnosis (1) Lumbosacral disc herniation Priority: Primary Status: Acute (2) Lumbar radiculopathy Priority: Secondary Status: Acute (3) Leukocytosis Priority: Secondary Status: Acute Qualifiers: Qualified Code(s): D72.829 - Elevated white blood cell count, unspecified (4) Hypertension Priority: Secondary Status: Acute Qualifiers: Hypertension type: essential hypertension Qualified Code(s): I10 - Essential (primary) hypertension (5) Smoker Priority: Secondary Status: Acute (6) DVT prophylaxis Priority: Secondary Status: Acute Hospital course: Mr. Joiner is a 47 year old male with chronic low back pain adn every day smoker presented to [facility] ED with complaint of back pain. Patient notes he has been having constant back apin in the lower back with associated intermittent numbness of his legs for the past 6 months and has been seeing his PCP and getting cortisone injections. Last injection was about 3 weekas ago. His back pain has usually been relieved for about a month after these injections are given. He comes in today complaining of severe back pain that left him unable to move or tie his shoelaces, and has been constant all day. He was at [facility], where he got an MRI of the back done showing an L5-s1 disc extrusion and Dr Beckett was consulted who accepted the patient here for further management. he under went microdiscectomy L5-S1 on 12/24/17. post surgery his symptoms nearly resolved. has ambulated all around the unit with out pain or difficulty. denies saddle anesthesia, no bowel or bladder incontinence, denies loss of strength in his lower extremities, no paresthesia or loss of sensation of his lower extremities. he is stable for discharge and to follow up [facility] Dr. freeman in 2 weeks. he was hypertensive during admission adn was started on PO antihypertensive was old o follow up with primary care for titration as per BP readings from his BP log that he was old to keep. he was counseled on smoking cessation Discharge discussed with: patient, family, nurse, merchandising consultant (Dr. freeman ) - Time Spent with Patient Total time spent providing and/or coordinating discharge services: Less than 30 minutes - Discharge Medications Prescriptions: Acetaminophen [Tylenol] 650 mg PO Q6HR PRN #30 tablet PRN Reason: Mild Pain/Fever amLODIPine [Norvasc] 5 mg PO DAILY #30 tablet Home Medications: Acetaminophen [Tylenol] 650 mg PO Q6HR PRN #30 tablet 12/25/17 [Rx] amLODIPine [Norvasc] 5 mg PO DAILY #30 tablet 12/25/17 [Rx] Allergies/Adverse Reactions: 3 Allergy/AdvReac Type Severity Reaction Status Date / Time No Known Allergies Allergy Verified 12/22/17 21:59 Date of admission: 12/22/17 22:46 Primary care physician: PCP NONE Consults: 12/24/17 16:17 Consult to Nurse Navigator [CONS] Routine Comment: spine navigator Consult to Occupational Therapy [CONS] Routine Comment: Evaluate, develop and implement POC Reason for Consult: Postoperative rehabilitation Does patient have active BEDREST order?: No Is patient medically & hemodynamically stable?: Yes Patient assessed for mobility or mobilized this visit?: No Consult to Physical Therapy [CONS] Routine Comment: Evaluate, develop and implement POC Reason for Consult: Postoperative rehabilitation Does patient have active BEDREST order?: No Is patient medically & hemodynamically stable?: Yes Patient assessed for mobility or mobilized this visit?: No - Constitutional Vitals: Temp Pulse Resp BP Pulse Ox 97.9 F 64 16 151/86 99 12/25/17 06:25 12/25/17 06:25 12/25/17 06:25 12/25/17 06:25 12/25/17 06:25 Exam: General: Patient is alert, oriented, no distress Head: atraumatic, normocephalic, Eye: normal appearance, PERRL, no scleral icterus, no conjunctival injection ENT: mucous membranes moist, normal external ear exam Neck: normal inspection, trachea midline, full ROM, no carotid bruits Chest: normal inspection, symmetric chest rise Respiratory: Good respiratory effort. Bilateral breath sounds are clear without wheezing, crackles, or rhonchi. Cardiovascular: Regular rate and rhythm. s1 and s2 No clicks, rubs, gallops, or murmors. Abdomen: Bowel sounds present normoactive x-4 quadrants. Abdomen is soft, nondistended. no Epigastric tenderness. No guarding or rebound. No organomegaly noted, musculoskeletal: Spontaneously moving all extremities. no edema, no calf tenderness Skin: warm, dry, intact. Neuro: Alert and oriented x4. Sensation light touch intact in all extremities, Cranial nerves 2-12 is intact. strength is 5/5 in all extremities Psych: Patient's affect is normal - Patient Status Disposition: Home, Self-Care Condition: Good Overall status at discharge: patient is progressing back to baseline - Discharge Instructions Follow Up With: NONE,PCP [Primary Care Provider] - - Diet and Activity Activity: increase activity as tolerated Diet: low salt diet - VTE Documentation of Mechanical Device: Intermittent pneumatic compression device
== END 2017-12-25 09:11 | disposition home or self-care (01) ==
LOC: 3NENU 19:22 → EMEROO 19:22 → SUATTDRO 22:46 → 3NENU 23:28
PROVIDERS: ADMIT Student in an Organized Health Care Education/Training Program; ATTEND Internal Medicine